=== PATIENT | male | born 1960 ===

== ENCOUNTER 2021-06-25 09:23 | Outpatient (CLI) | payer OTHER | END 2021-06-25 09:24 | disposition home or self-care (01) | LOC: SONOGRAMA 09:23 | PROVIDERS: ATTEND Pathology Anatomic Pathology & Clinical Pathology | DX: R59.0 Localized enlarged lymph nodes (principal) ==

== ENCOUNTER 2021-08-18 05:08 | Day surgery (SDC) | payer OTHER ==
[~2021-08-18] VITALS: Ht 167.6 cm; Wt 87.1 kg
[~2021-08-18 05:08] MED LIST: ADULT LOW DOSE81 M1 PO; ALTACE5 MG PO; GLIMEPIRIDE4 MG; HUMALOG100 UNIT/2; LANTUS SOL100 UNIT/1; LIPITOR80 MG PO; NORVASC10 MG PO; TOPROL XL100 M1 PO; ZETIA10 MG PO
== END 2021-08-18 13:45 | disposition home or self-care (01) ==
LOC: CIR.AMB 05:08
PROVIDERS: ATTEND Specialist
DX: D17.1 Benign lipomatous neoplasm of skin and subcutaneous tissue of trunk (principal); Z20.822 Contact with and (suspected) exposure to COVID-19; I10 Essential (primary) hypertension; E78.5 Hyperlipidemia, unspecified; E11.9 Type 2 diabetes mellitus without complications; Z79.4 Long term (current) use of insulin